=== PATIENT | female | born 1980 | race Caucasian/White ===

== ENCOUNTER 2017-01-21 16:21 | Emergency (ER) | payer OTHER ==
[~2017-01-21] VITALS: Ht 154.9 cm; Wt 91.3 kg
[2017-01-21] MEDS ORDERED: SODIUM CHLORIDE FLUSH 10ML SYR IVF ONE (16:30)
[2017-01-21] MEDS ORDERED: SODIUM CHLORIDE 0.9% 1,000ML IVBOLUS ONE (16:30)
[2017-01-21] MEDS ORDERED: ONDANSETRON 2MG/ML, 2ML IVPush ONE (16:30)
[2017-01-21] MEDS ORDERED: ONDANSETRON 2MG/ML, 2ML ONE (17:05)
[2017-01-21] MEDS ORDERED: MORPHINE SULFATE 4 MG/ML, 1ML ONE ×2 (17:05→17:40)
[2017-01-21] MEDS: MORPHINE SULFATE 4 MG/ML, 1ML IVPush PRN ×2 (17:10→17:46)
[2017-01-21 17:27] LABS: ASPARTATE AMINO TRANSFERASE 18 U/L (15-37); BLOOD UREA NITROGEN 11 mg/dL (7-18)
[2017-01-21 18:58] VITALS: BP 126/63
== END 2017-01-21 19:00 | disposition home or self-care (01) ==
LOC: ED 18:54
DX: R10.2 Pelvic and perineal pain (principal); N73.1 Chronic parametritis and pelvic cellulitis; N76.0 Acute vaginitis; Z90.49 Acquired absence of other specified parts of digestive tract
CPT/HCPCS: 36415; 76830; 80053; 81001; 83690; 84703; 85025; 87070; 87086; 87205; 87210; 87491; 87591; 87808; 96361; 96374; 96375; 96376; 99285; J2405; J7030

== ENCOUNTER 2017-01-23 13:53 | Emergency (ER) | payer OTHER ==
[~2017-01-23] VITALS: Ht 154.9 cm; Wt 90.0 kg
[2017-01-23] MEDS ORDERED: SODIUM CHLORIDE 0.9% 1,000 ML IV ONE (14:15)
[2017-01-23] MEDS ORDERED: ONDANSETRON 2MG/ML, 2ML IVPush ONE (14:30)
[2017-01-23] MEDS ORDERED: SODIUM CHLORIDE 0.9% 1,000ML IVBOLUS ONE (14:30)
[2017-01-23] MEDS ORDERED: ONDANSETRON 2MG/ML, 2ML ONE (14:50)
[2017-01-23] MEDS ORDERED: MORPHINE SULFATE 4 MG/ML, 1ML ONE ×2 (14:50→15:43)
[2017-01-23] MEDS: MORPHINE SULFATE 4 MG/ML, 1ML IVPush PRN ×2 (14:55→15:53)
[2017-01-23 15:04] LABS: BLOOD UREA NITROGEN 12 mg/dL (7-18)
[2017-01-23 17:42] VITALS: BP 100/64
== END 2017-01-23 17:55 | disposition home or self-care (01) ==
LOC: ED 17:30
DX: N76.0 Acute vaginitis (principal); Z90.49 Acquired absence of other specified parts of digestive tract
CPT/HCPCS: 36415; 80048; 81001; 82040; 85025; 87086; 96361; 96374; 96375; 96376; 99285; J2405; J7030

== ENCOUNTER 2017-02-06 21:27 | Emergency (ER) | payer OTHER ==
[~2017-02-06] VITALS: Ht 154.9 cm; Wt 85.0 kg
[2017-02-06] MEDS ORDERED: MECLIZINE CHEWABLE 25 MG TAB PO ONE (22:00)
[2017-02-06] MEDS ORDERED: SODIUM CHLORIDE 0.9% 1,000ML IVBOLUS ONE (22:00)
[2017-02-06] MEDS ORDERED: ONDANSETRON 2MG/ML, 2ML IVPush ONE (22:00)
[2017-02-06] MEDS ORDERED: MECLIZINE CHEWABLE 25 MG TAB ONE (22:14)
[2017-02-06] MEDS ORDERED: ONDANSETRON 2MG/ML, 2ML ONE (22:15)
[2017-02-06 22:41] LABS: BLOOD UREA NITROGEN 13 mg/dL (7-18)
[2017-02-06] MEDS ORDERED: PHEN-490 PO (22:51)
[2017-02-06] MEDS ORDERED: AMIT25TA PO (22:51)
[2017-02-06] MEDS ORDERED: DOXY100T PO (22:51)
[2017-02-06] MEDS ORDERED: ACYC-114 PO (22:51)
[2017-02-06] MEDS ORDERED: PROCHLORPERAZINE 5 MG/ML, 2ML ONE (22:54)
[2017-02-06] MEDS ORDERED: DIPHENHYDRAMINE 50 MG/ML, 1ML ONE (22:54)
[2017-02-06] MEDS ORDERED: ACETAMINOPHEN 325 MG TABLET ONE (22:54)
[2017-02-06] MEDS ORDERED: PROCHLORPERAZINE 5 MG/ML, 2ML IV ONE (23:00)
[2017-02-06] MEDS ORDERED: DIPHENHYDRAMINE 50 MG/ML, 1ML IVPush ONE (23:00)
[2017-02-06] MEDS ORDERED: ACETAMINOPHEN 325 MG TABLET PO ONE (23:00)
[2017-02-06 23:50] VITALS: BP 103/56
== END 2017-02-07 00:17 | disposition home or self-care (01) ==
LOC: ED 23:59
DX: R42 Dizziness and giddiness (principal); R11.2 Nausea with vomiting, unspecified
CPT/HCPCS: 36415; 80048; 82040; 85025; 93005; 96361; 96374; 96375; 99285; J0780; J1200; J2405; J7030

== ENCOUNTER 2017-05-01 23:49 | Emergency (ER) | payer MEDICAID, OTHER ==
[~2017-05-01] VITALS: Ht 154.9 cm; Wt 90.0 kg
[~2017-05-01 23:49] MED LIST: ACYC-114 PO; AMIT25TA PO; DOXY100T PO; PHEN-582 PO
[2017-05-02] MEDS ORDERED: ONDANSETRON 2MG/ML, 2ML IVPush ONE (00:30)
[2017-05-02] MEDS ORDERED: PROMETHAZINE 25 MG/ML, 1ML IM ONE (00:30)
[2017-05-02] MEDS ORDERED: SODIUM CHLORIDE 0.9% 1,000ML IVBOLUS ONE (00:30)
[2017-05-02] MEDS ORDERED: SODIUM CHLORIDE FLUSH 10ML SYR IVF ONE (00:30)
[2017-05-02] MEDS ORDERED: ONDANSETRON 2MG/ML, 2ML ONE (00:46)
[2017-05-02] MEDS ORDERED: morphine SULFATE 10 MG/ML, 1ML ONE ×2 (00:47→02:11)
[2017-05-02 00:52] LABS: HEMATOCRIT 48.2 % (34.6-47.8); HEMOGLOBIN 15.7 g/dL (11.7-16.4)
[2017-05-02] MEDS: MORPHINE SULFATE 4 MG/ML, 1ML IVPush PRN ×2 (00:56→02:16)
[2017-05-02 01:02] LABS: ASPARTATE AMINO TRANSFERASE 22 U/L (15-37); BLOOD UREA NITROGEN 10 mg/dL (7-18)
[2017-05-02] MEDS ORDERED: PROMETHAZINE 25 MG/ML, 1ML ONE (01:23)
[2017-05-02 01:24] LABS: DAU SCREEN DISCLAIMER
[2017-05-02] MEDS ORDERED: OMNIPAQUE 350 MG/ML, 100ML BOTTLE ONE (01:40)
[2017-05-02 02:07] VITALS: BP 123/65
== END 2017-05-02 02:59 | disposition home or self-care (01) ==
LOC: ED 05-02 00:46
DX: K52.89 Other specified noninfective gastroenteritis and colitis (principal); R19.7 Diarrhea, unspecified; D72.829 Elevated white blood cell count, unspecified; E86.0 Dehydration; G43.A0 Cyclical vomiting, in migraine, not intractable; R10.32 Left lower quadrant pain; R10.12 Left upper quadrant pain
CPT/HCPCS: 36415; 74177; 80053; 80307; 81003; 83690; 84703; 85025; 93005; 96361; 96372; 96374; 96375; 96376; 99285; J2405; J2550; J7030; Q9967; G0479

== ENCOUNTER 2017-05-04 16:20 | Emergency (ER) | payer OTHER ==
[~2017-05-04] VITALS: Ht 152.4 cm; Wt 88.9 kg
[2017-05-04] MEDS ORDERED: SODIUM CHLORIDE 0.9% 1,000 ML IV ONE (16:57)
[2017-05-04] MEDS ORDERED: KETOROLAC 30 MG/1 ML IVPush ONE (17:00)
[2017-05-04] MEDS ORDERED: FAMOTIDINE 20 MG/2 ML IVP ONE (17:00)
[2017-05-04] MEDS ORDERED: ONDANSETRON 2MG/ML, 2ML IVPush ONE (17:00)
[2017-05-04] MEDS ORDERED: SODIUM CHLORIDE 0.9% 1,000ML IVBOLUS ONE (17:00)
[2017-05-04] MEDS ORDERED: SODIUM CHLORIDE FLUSH 10ML SYR IVF ONE (17:00)
[2017-05-04 17:32] LABS: HEMATOCRIT 41.7 % (34.6-47.8); HEMOGLOBIN 14.2 g/dL (11.7-16.4); WHITE BLOOD COUNT 9.3 x10^3/uL (3.4-10)
[2017-05-04 17:41] LABS: ASPARTATE AMINO TRANSFERASE 17 U/L (15-37); BLOOD UREA NITROGEN 9 mg/dL (7-18)
[2017-05-04] MEDS ORDERED: KETOROLAC 30 MG/1 ML ONE (17:43)
[2017-05-04] MEDS ORDERED: FAMOTIDINE 20 MG/2 ML ONE (17:44)
[2017-05-04] MEDS ORDERED: ONDANSETRON 2MG/ML, 2ML ONE (17:44)
[2017-05-04] MEDS ORDERED: CEFDINIR 300 MG CAPSULE PO ONE (19:30)
[2017-05-04] MEDS ORDERED: PHENAZOPYRIDINE 200 MG TABLET PO ONE (19:30)
[2017-05-04] MEDS ORDERED: PHENAZOPYRIDINE 100 MG TABLET ONE (19:53)
[2017-05-04 19:58] VITALS: BP 120/71
== END 2017-05-04 20:00 | disposition home or self-care (01) ==
LOC: ED 19:15
DX: A08.11 Acute gastroenteropathy due to Norwalk agent (principal); N30.00 Acute cystitis without hematuria; Z90.49 Acquired absence of other specified parts of digestive tract
CPT/HCPCS: 36415; 74177; 80053; 81001; 83605; 83690; 85025; 87086; 96361; 96374; 96375; 99285; J1885; J2405; J7030; S0028

== ENCOUNTER 2017-07-29 19:22 | Emergency (ER) | payer OTHER ==
[~2017-07-29] VITALS: Ht 152.4 cm; Wt 91.4 kg
[2017-07-29 20:08] LABS: BASOPHILS # (AUTO) 0.09 x10^3/uL (0-0.1); BASOPHILS % (AUTO) 1 % (0-1); EOSINOPHILS # (AUTO) 0.36 x10^3/uL (0-0.4); EOSINOPHILS % (AUTO) 3 % (1-7); LYMPHOCYTES # (AUTO) 4.42 x10^3/uL (1-3.4); LYMPHOCYTES % (AUTO) 39 % (22-44); MD NO; MEAN CORPUSCULAR HEMOGLOBIN 30.3 pg (27.0-34.8); MEAN CORPUSCULAR HGB CONC 32.7 g/dL (32.4-35.8); MEAN CORPUSCULAR VOLUME 92.7 fL (80-100); MEAN PLATELET VOLUME 9.8 fL (7.4-10.4); MONOCYTES % (AUTO) 7 % (2-9); NEUTROPHILS # (AUTO) 5.57 x10^3/uL (1.8-6.8); NEUTROPHILS % (AUTO) 50 % (42-75); PLATELET COUNT 285 x10^3/uL (130-400); RED BLOOD COUNT 4.38 x10^6/uL (3.82-5.3); RED CELL DISTRIBUTION WIDTH 13.5 % (9.6-15.2)
[2017-07-29 20:19] LABS: ANION GAP 6 mmol/L (5-15); CHLORIDE 111 mmol/L (98-107); CREATININE 0.73 mg/dL (0.55-1.02)
[2017-07-29 20:36] LABS: MICROSCOPIC INDICATED
[2017-07-29 20:39] LABS: CULTURE INDICATED? YES
[2017-07-29] MEDS ORDERED: OXYcodone/APAP 10/325MG TABLET PO ONE (21:00)
[2017-07-29] MEDS ORDERED: KETOROLAC 30 MG/1 ML IM ONE (21:00)
[2017-07-29] MEDS ORDERED: OXYcodone/APAP 10/325MG TABLET ONE (21:06)
[2017-07-29] MEDS ORDERED: KETOROLAC 30 MG/1 ML ONE (21:06)
[2017-07-29] MEDS ORDERED: CEFTRIAXONE 1,000 MG ONE (21:16)
[2017-07-29] MEDS ORDERED: CEFTRIAXONE 1,000 MG IM ONE (21:30)
[2017-07-29 22:02] VITALS: BP 110/68
== END 2017-07-29 22:05 | disposition home or self-care (01) ==
LOC: ED 21:34
DX: N30.00 Acute cystitis without hematuria (principal)
CPT/HCPCS: 36415; 80048; 81001; 82040; 85025; 87086; 96372; 99284; J0696; J1885

== ENCOUNTER → 2017-12-27 | Outpatient (CLI) | payer OTHER, MEDICAID | END | disposition home or self-care (01) | LOC: CFH 14:10 | PROVIDERS: ATTEND Family Medicine | DX: Z12.31 Encounter for screening mammogram for malignant neoplasm of breast (principal); R92.1 Mammographic calcification found on diagnostic imaging of breast; Z80.3 Family history of malignant neoplasm of breast | CPT/HCPCS: 77067 ==

== ENCOUNTER → 2018-08-08 | Outpatient (CLI) | payer OTHER, MEDICAID | END | disposition home or self-care (01) | LOC: CFH 13:09 | PROVIDERS: ATTEND Family Medicine | DX: R92.1 Mammographic calcification found on diagnostic imaging of breast (principal); Z80.3 Family history of malignant neoplasm of breast | CPT/HCPCS: 77065; G0279 ==

== ENCOUNTER 2019-01-26 18:12 | Emergency (ER) | payer OTHER, MEDICAID ==
[~2019-01-26] VITALS: Ht 154.9 cm; Wt 82.0 kg
--- NOTE | 2019-01-26 18:45 | NUR ---
pt reports bladder pain that started last night that has gotten progressively worse today. pt has been taking otc AZO. pt provided urine sample, sent to lab.
[2019-01-26] MEDS ORDERED: KETOROLAC 30 MG/1 ML IM ONE (19:00)
[2019-01-26 19:04] LABS: HCG UR SG 1.033 (1.003-1.030)
[2019-01-26 19:05] LABS: CULTURE INDICATED? YES; MICROSCOPIC INDICATED
--- NOTE | 2019-01-26 19:13 | NUR ---
Hayes walden in [facility] - 01/26/19 at 1947 by LIZ PT DAUGHTER NGOZI [phone]
[2019-01-26 19:27] LABS: BASOPHILS # (AUTO) 0.05 x10^3/uL (0-0.1); BASOPHILS % (AUTO) 1 % (0-1); EOSINOPHILS # (AUTO) 0.25 x10^3/uL (0-0.4); EOSINOPHILS % (AUTO) 3 % (1-7); LYMPHOCYTES # (AUTO) 4.28 x10^3/uL (1-3.4); LYMPHOCYTES % (AUTO) 46 % (22-44); MD NO; MEAN CORPUSCULAR HEMOGLOBIN 31.5 pg (27.0-34.8); MEAN CORPUSCULAR HGB CONC 32.9 g/dL (32.4-35.8); MEAN CORPUSCULAR VOLUME 95.6 fL (80-100); MEAN PLATELET VOLUME 9.7 fL (7.4-10.4); MONOCYTES # (AUTO) 0.73 x10^3/uL (0.2-0.8); MONOCYTES % (AUTO) 8 % (2-9); NEUTROPHILS # (AUTO) 4.04 x10^3/uL (1.8-6.8); NEUTROPHILS % (AUTO) 43 % (42-75); PLATELET COUNT 249 x10^3/uL (130-400); RED BLOOD COUNT 4.06 x10^6/uL (3.82-5.3); RED CELL DISTRIBUTION WIDTH 13.6 % (9.6-15.2)
[2019-01-26 19:34] LABS: ALBUMIN 3.1 g/dL (3.4-5.0); ANION GAP 6 mmol/L (5-15); CALCIUM 8.7 mg/dL (8.5-10.1); CHLORIDE 111 mmol/L (98-107); CREATININE 0.59 mg/dL (0.55-1.02)
[2019-01-26] MEDS ORDERED: KETOROLAC 30 MG/1 ML ONE (19:34)
[2019-01-26] MEDS ORDERED: GABA300C10 PO (19:37)
--- NOTE | 2019-01-26 19:48 | NUR ---
PT MEDICATED PER EMAR.
--- NOTE | 2019-01-26 20:01 | NUR ---
pt labs and imaging resulted. pt placed for recheck by caitlin galvan
[2019-01-26 20:42] VITALS: BP 108/53
== END 2019-01-26 20:45 | disposition home or self-care (01) ==
LOC: ED 20:00
DX: N30.10 Interstitial cystitis (chronic) without hematuria (principal); G89.29 Other chronic pain; R10.2 Pelvic and perineal pain; R30.0 Dysuria
CPT/HCPCS: 36415; 76830; 80048; 81001; 81025; 82040; 84703; 85025; 87086; 96372; 99284; J1885